=== PATIENT | female | born 1950 | race Caucasian/White ===

== ENCOUNTER → 2017-01-28 | Outpatient (CLI) | payer BC, MEDICARE ==
[~2017-01-28] MED LIST: ASPIRIN E.C. 8181 MG PO; BYSTOLIC20 MG PO; CARDI-OMEGA1000 MG PO; CARTIA XT 180 MG; CIPRO 500MG TA500 MG PO; COZAAR100 MG PO; FLAGYL500 MG PO; MULTI VITAMINS1 TAB PO; NORVASC 10MG10 MG PO; PREDNISONE 5MG5 MG PO; TENORMIN100 MG PO; VALTREX1 GM PO; [UNRECOGNIZED DRUG - OTHER]
== END ==
LOC: MC.RAD 10:20
DX: Z12.31 Encounter for screening mammogram for malignant neoplasm of breast (principal); D24.2 Benign neoplasm of left breast; Z85.3 Personal history of malignant neoplasm of breast; Z80.3 Family history of malignant neoplasm of breast; Z90.11 Acquired absence of right breast and nipple

== ENCOUNTER → 2018-03-10 | Outpatient (CLI) | payer BC, MEDICARE | LOC: MC.RAD 13:40 | DX: Z12.31 Encounter for screening mammogram for malignant neoplasm of breast (principal); R92.8 Other abnormal and inconclusive findings on diagnostic imaging of breast ==

== ENCOUNTER → 2018-03-11 | Outpatient (CLI) | payer BC | LOC: MC.RAD 13:00 | DX: R92.2 Inconclusive mammogram (principal) ==

== ENCOUNTER → 2019-04-09 | Outpatient (CLI) | payer BC | LOC: MC.RAD 16:27 | DX: Z12.31 Encounter for screening mammogram for malignant neoplasm of breast (principal); N64.89 Other specified disorders of breast ==

== ENCOUNTER → 2019-04-14 | Outpatient (CLI) | payer BC | LOC: MC.RAD 13:53 | DX: R92.2 Inconclusive mammogram (principal) ==

== ENCOUNTER → 2019-04-15 | Outpatient (CLI) | payer BC | LOC: MC.RAD 09:49 | DX: N63.20 Unspecified lump in the left breast, unspecified quadrant (principal) ==

== ENCOUNTER → 2019-05-04 | Outpatient (CLI) | payer BC ==
[~2019-05-04] MED LIST changes: +ACULAR 10 ML10 ML OU; +COZAAR 50MG50 MG/TAB PO; +LASIX 20MG TABL20 MG PO; +MELATONIN5 M1 SL; +NORCO 325 MG-51 TAB PO; +OCUFLOX OPHTH DR5 ML OU; +PREDFORTE5ML OU; +TYLENOL PM EXTR1 TA1 PO
== END ==
LOC: COL.RAD 13:34
DX: Z01.89 Encounter for other specified special examinations (principal)

== ENCOUNTER 2019-05-05 06:29 | Day surgery (SDC) | payer BC ==
[~2019-05-05] VITALS: Ht 154.9 cm; Wt 76.6 kg
[2019-05-05] VITALS (7 sets, daily range): BP systolic 163–188; BP diastolic 57–86; PULSE 48–58; TEMP 97–98.1
[~2019-05-05 06:29] MED LIST changes: -ACULAR 10 ML10 ML OU; -COZAAR 50MG50 MG/TAB PO; -LASIX 20MG TABL20 MG PO; -MELATONIN5 M1 SL; -NORCO 325 MG-51 TAB PO; -OCUFLOX OPHTH DR5 ML OU; -PREDFORTE5ML OU; -TYLENOL PM EXTR1 TA1 PO
--- NOTE | 2019-05-05 08:18 | NUR ---
Initial visit; Specialized Developer spoke with patient and her daughter following her Procedure with Dr. Lopez. Specialized Developer offered Spiritual Care by wishing Julia God's blessings and good health.
[2019-05-05] MEDS ORDERED: COZAAR 50MG50 MG/TAB PO (08:57)
[2019-05-05] MEDS ORDERED: TYLENOL PM EXTR1 TA1 PO (08:59)
[2019-05-05] MEDS ORDERED: LASIX 20MG TABL20 MG PO (08:59)
[2019-05-05] MEDS ORDERED: MELATONIN5 M1 SL (09:00)
[2019-05-05] MEDS ORDERED: PREDFORTE5ML OU (09:02)
[2019-05-05] MEDS ORDERED: ACULAR 10 ML10 ML OU (09:02)
[2019-05-05] MEDS ORDERED: OCUFLOX OPHTH DR5 ML OU (09:03)
[2019-05-05] MEDS ORDERED: NORCO 325 MG-51 TAB PO (10:41)
--- NOTE | 2019-05-05 11:15 | NUR ---
The patient arrived back to [facility] from the recovery room at this time. The patient appears alert and oriented and denies any pain or nausea at this time. The patient has tried some ice chips and requests some coffee at this time. The patient's dressings to her left breast appear clean, dry, and intact. The patient's post operative vital signs were started at this time. The patient's daughter was brought back to be at her bedside. Call light is within reach. The patient denies any further needs at this time. Will continue to monitor the patient.
--- NOTE | 2019-05-05 11:30 | NUR ---
The patient appears to be tolerating the coffee well and agrees to try a muffin at this time. The patient's vital signs appear stable at baseline at this time. The patient's daughter remains at her bedside. Will continue to monitor the patient.
--- NOTE | 2019-05-05 11:45 | NUR ---
The patient is sitting up in bed eating and drinking and appears to be resting comfortably on the cart. The patient continues to deny any pain or nausea at this time. Will continue to monitor the patient.
--- NOTE | 2019-05-05 12:00 | NUR ---
The patient appears to be resting comfortably on the cart talking with her daughter and continues to deny any pain. The patient has finished her food and drink and appeared to tolerate both well.
--- NOTE | 2019-05-05 12:30 | NUR ---
The patient ambulated to the bathroom with the stand by assistance of one nurse and appeared to tolerate the activity well. The patient voided yellow, clear urine without difficulty and voices a desire to be discharged home.
--- NOTE | 2019-05-05 12:45 | NUR ---
Discharge instructions were reviewed with the patient and her daughter at this time. They both verbalized understanding and questions were answered at this time. The patient is dressed and ready to be escorted out.
--- NOTE | 2019-05-05 12:52 | NUR ---
The patient was escorted out via wheelchair to a private vehicle by LITZY Prabhakar. The patient's belongings and discharge papework were sent with her. The patient's daughter is present to drive her home.
== END 2019-05-05 12:52 | disposition home or self-care (01) ==
LOC: SDCO 06:29
DX: C50.212 Malignant neoplasm of upper-inner quadrant of left female breast (principal); Z17.0 Estrogen receptor positive status [ER+]; I10 Essential (primary) hypertension; G51.0 Bell's palsy; I34.0 Nonrheumatic mitral (valve) insufficiency; M10.9 Gout, unspecified; Z85.3 Personal history of malignant neoplasm of breast; Z90.11 Acquired absence of right breast and nipple; Z80.3 Family history of malignant neoplasm of breast; Z79.82 Long term (current) use of aspirin; F17.210 Nicotine dependence, cigarettes, uncomplicated; Z88.8 Allergy status to other drugs, medicaments and biological substances; Z88.2 Allergy status to sulfonamides
CPT/HCPCS: A9541; J0360; J0690; J1100; J2250; J2405; J2704; J2795; J3010; J7120

== ENCOUNTER → 2020-04-12 | Outpatient (CLI) | payer MEDICARE ==
[~2020-04-12] MED LIST changes: +ACULAR 10 ML10 ML OU; +COZAAR 50MG50 MG/TAB PO; +LASIX 20MG TABL20 MG PO; +MELATONIN5 M1 SL; +NORCO 325 MG-51 TAB PO; +OCUFLOX OPHTH DR5 ML OU; +PREDFORTE5ML OU; +TYLENOL PM EXTR1 TA1 PO
== END ==
LOC: MC.RAD 11:22
DX: Z12.31 Encounter for screening mammogram for malignant neoplasm of breast (principal); Z98.890 Other specified postprocedural states; Z98.82 Breast implant status

== ENCOUNTER → 2021-04-18 | Outpatient (CLI) | payer MEDICARE | LOC: MC.RAD 13:26 | DX: Z12.31 Encounter for screening mammogram for malignant neoplasm of breast (principal) ==

== ENCOUNTER → 2022-04-19 | Outpatient (CLI) | payer MEDICARE | LOC: MC.RAD 10:15 | DX: Z12.31 Encounter for screening mammogram for malignant neoplasm of breast (principal); Z85.3 Personal history of malignant neoplasm of breast ==